=== PATIENT | female | born 1960 | race Caucasian/White ===

== ENCOUNTER 2018-04-23 11:26 | Emergency (ER) | payer OTHER ==
[2018-04-23] MEDS ORDERED: ACETAMINOPHEN 325 MG TABLET PO STA (11:56)
[2018-04-23] MEDS ORDERED: SODIUM CHLORIDE 0.9% 1,000 ML IV ONE (11:56)
--- NOTE | 2018-04-23 11:58 | ED Physician Documentation ---
PD HPI NVD - Stated complaint Stated Complaint: N/V CHILLS FEVER - Chief complaint Chief Complaint: Abd Pain - History obtained from History obtained from: Patient, Family - History of Present Illness Timing - onset: Today Timing - duration: Hours Timing - details: Abrupt onset, Still present Associated symptoms: Fever, Dizzy, Near syncope / syncope, Loss of appetite Improved by: Laying still Similar symptoms before: Has not had sx before Recently seen: Not recently seen - Additonal information Additional information: 58-year-old female was well when she went to bed last night and when she woke this morning. She did not have breakfast which is usual for her. 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 She has low-grade fever. She denies any more cough than her usual morning cough which she coughed up a small amount of phlegm. She denies any swelling or areas of pain. Review of Systems Constitutional: reports: Fever, Chills, Myalgias, Fatigue, Sweats Eyes: denies: Decreased vision Ears: denies: Ear pain Nose: denies: Rhinorrhea / runny nose, Congestion Throat: denies: Sore throat Cardiac: denies: Chest pain / pressure, Palpitations Respiratory: reports: Cough. denies: Dyspnea GI: reports: Nausea, Vomiting. denies: Abdominal Pain : denies: Dysuria, Frequency Skin: denies: Rash Musculoskeletal: denies: Neck pain, Back pain, Extremity pain Neurologic: reports: Generalized weakness. 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, Tubal ligation - Present Medications Home Medications: Ambulatory Orders Medication Instructions Recorded Confirmed Levofloxacin [Levaquin] 500 mg PO DAILY #10 tablet 04/23/18 - Allergies Allergies/Adverse Reactions: Allergies Allergy/AdvReac Type Severity Reaction Status Date / Time adhesive Allergy Hives Verified 04/23/18 11:32 - Social History Does the pt smoke?: No Smoking Status: Never smoker Does the pt drink ETOH?: No Does the pt have substance abuse?: No - Immunizations Immunizations are current?: Yes - POLST Patient has POLST: No PD ED PE NORMAL - Vitals Vital signs reviewed: Yes (tachy and hypertensive ) - General General: Alert and oriented X 3, No acute distress, Well developed/nourished - HEENT HEENT: Atraumatic, PERRL, EOMI, Ears normal - Neck Neck: Supple, no meningeal sign, No bony TTP - Cardiac Cardiac: No murmur, Other (tachy to 110) - Respiratory Respiratory: No respiratory distress, Clear bilaterally - Abdomen Abdomen: Soft, Non tender - Back Back: No CVA TTP, No spinal TTP - Derm Derm: Normal color, Warm and dry, No rash - Extremities Extremities: No deformity, No edema - Neuro Neuro: Alert and oriented X 3, public health registrar 2-12 intact, No motor deficit, No sensory deficit, Normal speech Eye Opening: Spontaneous Motor: Obeys Commands Verbal: Oriented GCS Score: 15 - Psych Psych: Normal mood, Normal affect Results - Vitals Vitals: Vital Signs - 24 hr 04/23/18 04/23/18 04/23/18 11:30 15:06 15:23 Temperature 37.0 C 38.1 C H Heart Rate 107 H 93 Respiratory 16 18 Rate Blood Pressure 136/75 H 103/63 O2 Saturation 97 94 97 Oxygen O2 Source Room air - Labs Labs: Laboratory Tests 04/23/18 04/23/18 04/23/18 12:10 12:10 12:15 WBC 12.7 H RBC 4.74 Hgb 13.8 Hct 40.6 MCV 85.6 MCH 29.1 MCHC 34.0 RDW 13.6 Plt Count 197 MPV 9.7 Neut # (Auto) 12.2 H Lymph # (Auto) 0.3 L [place] # (Auto) 0.2 Eos # (Auto) 0.0 Baso # (Auto) 0.1 Absolute Nucleated RBC 0.01 Total Counted CHILD WELFARE SPECIALIST Band Neuts % (Manual) CHILD WELFARE SPECIALIST Abnorm Lymph % (Manual) CHILD WELFARE SPECIALIST Nucleated RBC % 0.1 Neutrophils # (Manual) CHILD WELFARE SPECIALIST Lymphocytes # (Manual) CHILD WELFARE SPECIALIST Monocytes # (Manual) CHILD WELFARE SPECIALIST Eosinophils # (Manual) CHILD WELFARE SPECIALIST Basophils # (Manual) CHILD WELFARE SPECIALIST Platelet Morphology A Sodium 138 Potassium 3.1 L Chloride 103 Carbon Dioxide 26 Anion Gap 9.0 BUN 23 H Creatinine 0.6 Estimated GFR (MDRD) 102 Glucose 118 H Lactic Acid 2.0 Calcium 9.0 Total Bilirubin 1.1 H AST 24 ALT 23 Alkaline Phosphatase 94 Total Protein 7.2 Albumin 4.2 Globulin 3.0 Albumin/Globulin Ratio 1.4 Lipase 29 Urine Color Urine Clarity Urine pH Ur Specific [place] Urine Protein Urine Glucose (UA) Urine Ketones Urine Occult Blood Urine Nitrite Urine Bilirubin Urine Urobilinogen Ur Leukocyte Esterase Urine RBC Urine WBC Ur Squamous Epith Cells Urine Bacteria Urine Mucus Ur Microscopic Review Urine Culture Comments 04/23/18 12:21 WBC RBC Hgb Hct MCV MCH MCHC RDW Plt Count MPV Neut # (Auto) Lymph # (Auto) [place] # (Auto) Eos # (Auto) Baso # (Auto) Absolute Nucleated RBC Total Counted Band Neuts % (Manual) Abnorm Lymph % (Manual) Nucleated RBC % Neutrophils # (Manual) Lymphocytes # (Manual) Monocytes # (Manual) Eosinophils # (Manual) Basophils # (Manual) Platelet Morphology Sodium Potassium Chloride Carbon Dioxide Anion Gap BUN Creatinine Estimated GFR (MDRD) Glucose Lactic Acid Calcium Total Bilirubin AST ALT Alkaline Phosphatase Total Protein Albumin Globulin Albumin/Globulin Ratio Lipase Urine Color YELLOW Urine Clarity CLEAR Urine pH 8.0 H Ur Specific [place] 1.020 Urine Protein NEGATIVE Urine Glucose (UA) NEGATIVE Urine Ketones NEGATIVE Urine Occult Blood TRACE-INTA Urine Nitrite POSITIVE H Urine Bilirubin NEGATIVE Urine Urobilinogen 0.2 (NORMAL) Ur Leukocyte Esterase SMALL H Urine RBC 0-5 Urine WBC >25 H Ur Squamous Epith Cells RARE Squamous Urine Bacteria Moderate H Urine Mucus Few Strands Ur Microscopic Review INDICATED Urine Culture Comments INDICATED - Rads (name of study) 2 veiw chest Radiology: Prelim report reviewed (Impression: Mild nodular right lung base opacities could represent bronchopneumonia. Probable scar or atelectasis in the lingula), EMP read indepedently, See rad report Procedures - IVC sono (time) 1150 Bedside IVC sono: IVC measures (cm) (1.14), IVC collapsed c insp (cm) (complete), Dehydration (est 1liter deficit) PD MEDICAL DECISION MAKING - ED course Complexity details: reviewed old records, reviewed results, re-evaluated patient, considered differential, d/w patient, d/w family ED course: 58 y/o female with acute febrile illness has evidence of infection on plain film of the chest was well as exam of the urine under the microscope. She is treated in the ED with IV saline and rocephin and is given potassium for a K+ of 3.1. Departure - Departure Disposition: 01 Home, Self Care Clinical Impression: Urinary tract infection Qualifiers: Urinary tract infection type: acute cystitis Hematuria presence: without hematuria Qualified Code(s): N30.00 - Acute cystitis without hematuria Pneumonia Qualifiers: Pneumonia type: due to unspecified organism Laterality: right Lung location: lower lobe of lung Qualified Code(s): J18.1 - Lobar pneumonia, unspecified organism Condition: Stable Instructions: ED UTI Cystitis Female, ED Pneumonia Adult Follow-Up: Catina Goncalves PA [Primary Care Provider] - Prescriptions: Levofloxacin [Levaquin] 500 mg PO DAILY #10 tablet
[2018-04-23 12:29] LABS: BASOPHILS # (AUTO) 0.1 10^3/uL (0.0-0.1); BASOPHILS % (AUTO) 0.5 %; EOSINOPHILS % (AUTO) 0.3 %; HGB - HEMOGLOBIN 13.8 g/dL (12.0-16.0); LYMPHOCYTES # (AUTO) 0.3 10^3/uL (1.5-3.5); MEAN CORPUSCULAR HEMOGLOBIN 29.1 pg (27.0-31.0); MEAN CORPUSCULAR VOLUME 85.6 fL (81.0-99.0); MEAN PLATELET VOLUME 9.7 fL (7.9-10.8); MONOCYTES # (AUTO) 0.2 10^3/uL (0.0-1.0); MONOCYTES % (AUTO) 1.3 %; NEUTROPHILS # (AUTO) 12.2 10^3/uL (1.5-6.6); NEUTROPHILS % (AUTO) 95.9 %; PLT - PLATELET COUNT 197 10^3/uL (130-450); RED BLOOD COUNT 4.74 10^6/uL (4.20-5.40); RED CELL DISTRIBUTION WIDTH 13.6 % (12.0-15.0); WHITE BLOOD COUNT 12.7 x10^3/uL (4.8-10.8)
[2018-04-23 12:32] LABS: BILIRUBIN,URINE NEGATIVE (NEGATIVE); GLUCOSE, URINE (UA) NEGATIVE (NEGATIVE); KETONES,URINE (UA) NEGATIVE (NEGATIVE); LEUKOCYTE ESTERASE, URINE SMALL (NEGATIVE); NITRITE,URINE POSITIVE (NEGATIVE); OCCULT BLOOD,URINE TRACE-INTA (NEGATIVE); PROTEIN,URINE NEGATIVE (NEGATIVE); UROBILINOGEN,URINE 0.2 (NORMAL) E.U./dL (NORMAL)
[2018-04-23] MEDS ORDERED: cefTRIAXone 1 GM in SODIUM CHLORIDE 0.9% MINIBAG 100 ML IV STA (12:33)
[2018-04-23 12:39] LABS: ALBUMIN 4.2 g/dL (3.2-5.5); ALBUMIN/GLOBULIN RATIO 1.4 (1.0-2.2); BILIRUBIN,TOTAL 1.1 mg/dL (0.2-1.0); CREATININE 0.6 mg/dL (0.4-1.0); TOTAL PROTEIN 7.2 g/dL (6.7-8.2)
[2018-04-23] MEDS ORDERED: POTASSIUM BICARB 25 MEQ TABLET PO STA (12:40)
[2018-04-23 13:15] LABS: PLATELET MORPHOLOGY A (NORMAL)
[2018-04-23 13:42] LABS: CLARITY,URINE CLEAR (CLEAR)
[2018-04-23 13:43] LABS: BACTERIA,URINE Moderate /HPF (None Seen); RBC,URINE 0-5 /HPF (0-5); SQUAMOUS EPITHELIAL CELL,UR RARE Squamous (<= Few)
[2018-04-23 13:44] LABS: MUCUS,URINE Few Strands
--- NOTE | 2018-04-23 14:11 | XRAY Report ---
Reason: cough fever chills Procedure Date: 04/23/2018 Accession Number: [id number] / [id number] Procedure: XR - Chest 2 View X-Ray CPT Code: 79876 FULL RESULT: EXAM: CHEST RADIOGRAPHY EXAM DATE: 04/23/2018 01:16 PM. CLINICAL HISTORY: Cough fever chills. COMPARISON: None. TECHNIQUE: 2 views. FINDINGS: Lungs/Pleura: Mild nodular opacities in the right lung base, likely in the right lower lobe. Probable streaky atelectasis or scar in the lingula. No pleural effusion. No pneumothorax. Borderline hyperinflation. Mediastinum: Heart and mediastinal contours are normal. Other: None. IMPRESSION: Mild nodular right lung base opacities could represent bronchopneumonia. Probable scar or atelectasis in the lingula. RADIA
[2018-04-23 15:08] VITALS: BP 103/63
== END 2018-04-23 16:01 | disposition home or self-care (01) ==
LOC: ED 11:26
DX: N30.00 Acute cystitis without hematuria (principal); J18.1 Lobar pneumonia, unspecified organism; E86.0 Dehydration; I10 Essential (primary) hypertension; E78.00 Pure hypercholesterolemia, unspecified
CPT/HCPCS: 36415; 71046; 80053; 81001; 81003; 83605; 83690; 85025; 87040; 87077; 87086; 87181; 99283

== ENCOUNTER 2018-04-24 00:11 | Inpatient (IN) | payer OTHER ==
--- NOTE | 2018-04-24 00:17 | ED Physician Documentation ---
ED Addendum - Addendum Addendum: The patient was seen earlier in the day and we are getting a preliminary blood culture results off of both sets of blood cultures with gram-negative rods (she was diagnosed with UTI). The patient was called to return to the ER for hospitalization due to bacteremia.8 00:16
[2018-04-24] MEDS ORDERED: SODIUM CHLORIDE 0.9% 1,000 ML IV ONE (00:40)
[2018-04-24] MEDS ORDERED: ZOLPIDEM 5 MG TABLET PO PRN (00:41)
[2018-04-24] MEDS ORDERED: cefTRIAXone 1 GM VIAL IVP STA (00:41)
[2018-04-24] MEDS ORDERED: oxyCODONE 5 MG TABLET PO PRN (00:41)
[2018-04-24] MEDS ORDERED: PROCHLORPERAZINE 10 MG/2 ML VIAL IVP PRN (00:41)
[2018-04-24] MEDS ORDERED: PROMETHAZINE 25 MG/1 ML VIAL IM PRN (00:41)
--- NOTE | 2018-04-24 00:48 | HISTORY & PHYSICAL EXAMINATION ---
Chief Complaint - Chief Complaint Chief Complaint: Nausea, vomiting, fever and chills History of Present Illness - Admitted From Admitted From:: Emergency Department - History Obtained From Records Reviewed: Yes History obtained from: Patient Exam Limitations: None - History of Present Illness HPI Comment/Other: Patient is a 58-year-old female with a past medical history significant for hypertension, hyperlipidemia, obstructive sleep apnea on CPAP, history of kidney stones and herniated disc in her spine who presented to the emergency department with a chief complaint of nausea, vomiting, chills and fever. The patient states that she was in her normal state of health until late last week when she began to develop urinary symptoms. She states that she was having increased urinary frequency, urinary urgency and noticed that she was having cloudy urine. The patient however denies any dysuria or abdominal or flank pain. She states that she did notice that she was having some palpitations off and on without any shortness of breath. She did not see a doctor or take any antibiotics. She states that around 8 AM this morning she became very nauseated. She states that she then started having dry heaves which continued to get worse and developed fever and chills. She states that her nausea was uncontrolled and she just continued to feel worse until she ended up calling her daughter to bring her into the emergency department. The patient also states that she has had a poor appetite throughout the day today and has not eaten anything today. Patient denies any headaches, blurred vision, runny nose, sore throat, nasal congestion, difficulty swallowing, chest pain, shortness of air, orthopnea, PND, increased lower extremity swelling, abdominal pain, diarrhea, constipation, joint swelling, muscle aches, back pain, neck stiffness, recent unintentional weight loss, hair loss, night sweats, polyuria, polydipsia, skin changes, insomnia or any focal neurologic deficits. On presentation to the emergency department this morning the patient was febrile with a temperature of 38.1, tachycardic with a heart rate of 107 and borderline hypotensive with a blood pressure of 103/63. The patient's lab work revealed a white blood cell count that was elevated at 12.7 and a mild hypokalemia. Patient's lactic acid was 2.0. The patient's urine analysis was positive with nitrite, small leukocyte esterase, greater than 25 WBCs and moderate bacteria. The patient also underwent a chest x-ray which revealed a mild nodular right lung base opacity which could represent broncho-pneumonia. The patient was diagnosed with a urinary tract infection and community acquired pneumonia. She was given a dose of IV ceftriaxone and discharged home with oral Levaquin. Later this evening the emergency room physician received the results from the patient's blood cultures from earlier in the day and they were growing gram- negative bacilli. The emergency room physician called the patient to come back to the emergency department so that she could be admitted for bacteremia. The patient returned and had normal vital signs and seemed to be feeling better but was admitted to the medical [facility] for further IV antibiotics and repeat blood cultures. 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 The live on a farm and have sheep and other animals. The patient is originally from [place] and moved to [facility] when her was deployed here in the [employer]. She has been living here for more than 20 years. 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 She denies any tobacco use, she rarely drinks alcohol and denies any illicit drug use. - POLST Patient has POLST: No POLST Status: Full Code Meds/Allgy - Home Medications Home Medications: Ambulatory Orders Medication Instructions Recorded Confirmed Levofloxacin [Levaquin] 500 mg PO DAILY #10 tablet 04/23/18 - Allergies Allergies/Adverse Reactions: Allergies Allergy/AdvReac Type Severity Reaction Status Date / Time adhesive Allergy Hives Verified 04/24/18 00:21 Review of Systems - Other Findings Other Findings: A comprehensive review of systems was performed the pertinent positives and negatives are stated above in the HPI and the remainder of the review of systems is negative. Prior Level of Functionality: Patient is completely independent with all her activities of daily living. Exam - Vital Signs Reviewed Vital Signs: Yes Vital Signs: Vital Signs x48h Temp Pulse Resp BP Pulse Ox 04/24/18 00:18 36.6 C 84 18 135/76 H 96 - Physical Exam General Appearance: positive: No acute distress, Alert Eyes Bilateral: positive: Normal inspection, PERRL, EOMI, No lid inflammation, Conjunctivae nml, No scleral icterus ENT: positive: ENT inspection nml, Pharynx nml, Dry mucous membranes. negative: Purulent nasal drainage, Pharyngeal erythema, Oral lesions Neck: positive: Nml inspection, Thyroid nml, No JVD, Trachea midline. negative: Thyromegaly, Lymphadenopathy (R), Lymphadenopathy (L), Carotid bruit, Tracheal deviation Respiratory: positive: Chest non-tender, No respiratory distress, Breath sounds nml. negative: Wheezes, Rales, Rhonchi Cardiovascular: positive: Regular rate & rhythm, No murmur, No gallop Peripheral Pulses: positive: 2+ Abdomen: positive: Non-tender, No organomegaly, Nml bowel sounds, No distention. negative: Guarding, Rebound, Hepatomegaly Back: positive: Nml inspection. negative: CVA tenderness (R), CVA tenderness (L) Skin: positive: Color nml, No rash, Warm, Dry. negative: Cyanosis, Diaphoresis, Pallor Extremities: positive: Non-tender, Full ROM, Nml appearance, No pedal edema Neurologic/Psychiatric: positive: Oriented x3, CN's nml (2-12), Motor nml, Sensation nml, Mood/affect nml Conclusion/Plan - Problem List (1) Gram-negative bacteremia Conclusion/Plan: The patient presented to the emergency department earlier today with complaint of nausea, dry heaves, chills and fever. The symptoms were getting worse throughout the morning to the point where patient could no longer stay at home. The patient also admitted to increased urinary frequency, urgency and cloudy urine since last week. On presentation the patient was febrile, tachycardic and had a leukocytosis. Patient's urinalysis was grossly positive for a urinary tract infection. Patient was also found to have infiltrate on chest x-ray concerning for pneumonia. Patient was treated with IV antibiotics and sent home but was called back when her blood cultures came back negative for gram- negative bacilli. Plan: Patient is being admitted for gram-negative bacilli bacteremia IV ceftriaxone and azithromycin Repeat blood cultures 24 hours after initial blood culture Await susceptibilities IV fluids The patient will need 14 days of antibiotic treatment (2) Urinary tract infection Conclusion/Plan: The patient presented with urinary urgency, urinary frequency and cloudy urine for over a week. She was beginning to have worsening symptoms of fevers, chills and nausea and vomiting. The patient had a positive UA concerning for urinary tract infection. Patient was treated with IV antibiotics and sent home but returns with positive blood cultures for gram-negative bacilli. Plan: IV ceftriaxone for treatment of UTI with bacteremia Follow-up urine and blood cultures IV fluids If patient remains afebrile for greater than 24 hours and appears to be improving she may be able to be switched to oral antibiotics depending on susceptibilities Patient will need 14 days of treatment for treatment of bacteremia. Qualifiers: Urinary tract infection type: acute pyelonephritis Qualified Code(s): N10 - Acute pyelonephritis (3) CAP (community acquired pneumonia) Conclusion/Plan: The patient presented with fever, tachycardia and elevated white blood cell count. The patient was found to have a urinary tract infection. The patient also underwent a chest x-ray which did show a right base pneumonia. The patient was initially treated with IV antibiotics in the emergency department and sent home with p.yoshi Urrutia. However the patient's blood cultures are growing gram- negative bacilli and she was called back to the emergency department and will be admitted for bacteremia. Plan: IV ceftriaxone azithromycin Follow-up blood cultures IV fluids Supplemental oxygen as needed Qualifiers: Laterality: right (4) Hypokalemia Conclusion/Plan: The patient had hypokalemia on presentation with a potassium of 3.1. This is likely secondary to her nausea and vomiting earlier this morning. The patient will be given potassium replacement with her IV fluid. We will continue to monitor the patient's potassium daily. (5) Hypertension Conclusion/Plan: Patient is a history of hypertension and is on metoprolol at home. The patient takes 100 mg of metoprolol in the morning and 50 mill grams at night. We will continue the patient on her home metoprolol dose and continue to monitor her blood pressure and titrate medication as needed. Qualifiers: Hypertension type: essential hypertension Qualified Code(s): I10 - Essential (primary) hypertension (6) Hyperlipidemia Conclusion/Plan: Patient has a history of hyperlipidemia and is on a statin at home. The patient will be continued on her statin while she is hospitalized. Qualifiers: Hyperlipidemia type: unspecified Qualified Code(s): E78.5 - Hyperlipidemia, unspecified (7) WESLY on CPAP Conclusion/Plan: Patient has a history of obstructive sleep apnea on CPAP. She is not compliant with her CPAP at home. The patient will be allowed to bring in her home CPAP and use it if she desires. (8) Chronic back pain Conclusion/Plan: The patient has chronic back pain secondary to a herniated disc. The patient takes meloxicam daily at home. We will continue the patient on meloxicam while she is hospitalized here. Patient will also be able to get Tylenol and oxycodone if she needs it. Qualifiers: Back pain location: back pain in unspecified location - Lab Results Lab results reviewed: Yes Other Lab Results: WBC 12.7 Potassium 3.1 BUN 23 Glucose 118 Total bilirubin 1.1 Lactate 2.0 - Diagnostic Imaging Results Diagnostic Imaging Results: positive: Final report reviewed Diagnostic Imaging Results Comments: Chest x-ray Impression: Mild nodular right lung base opacities could represent bronchopneumonia. Probable scar or atelectasis in the lingula. Core Measures - Anticipated LOS I expect patient to be DC'd or transferred within 96 hours.: Yes - DVT/VTE - Prophylaxis VTE/DVT Prophylaxis med ordered at admit?: Yes
[2018-04-24] MEDS: NS W/20 MEQ KCL 1,000 ML IV SCH ×2 (03:38→17:17)
[2018-04-24] MEDS: oxyCODONE 5 MG TABLET PO PRN ×2 (03:46→16:08)
[2018-04-24] MEDS: ACETAMINOPHEN 325 MG TABLET PO PRN ×2 (03:46→16:08)
[2018-04-24] MEDS: AZITHROMYCIN INJ 500 MG in SODIUM CHLORIDE 0.9% 250 ML IV SCH (03:46)
[2018-04-24] MEDS: SODIUM CHLORIDE FLUSH 0.9% 10 ML SYRINGE IVP SCH ×3 (03:55→17:20)
[2018-04-24] MEDS: ONDANSETRON 4 MG/2 ML VIAL IVP PRN (03:58)
[2018-04-24 04:10] LABS: BASOPHILS # (AUTO) 0.1 10^3/uL (0.0-0.1); BASOPHILS % (AUTO) 0.7 %; EOSINOPHILS % (AUTO) 0.3 %; HGB - HEMOGLOBIN 12.3 g/dL (12.0-16.0); LYMPHOCYTES # (AUTO) 0.4 10^3/uL (1.5-3.5); LYMPHOCYTES % (AUTO) 4.9 %; MEAN CORPUSCULAR HEMOGLOBIN 29.8 pg (27.0-31.0); MEAN CORPUSCULAR HGB CONC 34.4 g/dL (32.0-36.0); MEAN CORPUSCULAR VOLUME 86.5 fL (81.0-99.0); MEAN PLATELET VOLUME 9.2 fL (7.9-10.8); MONOCYTES # (AUTO) 0.4 10^3/uL (0.0-1.0); MONOCYTES % (AUTO) 4.8 %; NEUTROPHILS # (AUTO) 7.3 10^3/uL (1.5-6.6); NEUTROPHILS % (AUTO) 89.3 %; PLT - PLATELET COUNT 141 10^3/uL (130-450); RED BLOOD COUNT 4.13 10^6/uL (4.20-5.40); RED CELL DISTRIBUTION WIDTH 13.9 % (12.0-15.0); WHITE BLOOD COUNT 8.2 x10^3/uL (4.8-10.8)
[2018-04-24 04:13] LABS: ALBUMIN 3.4 g/dL (3.2-5.5); ALBUMIN/GLOBULIN RATIO 1.3 (1.0-2.2); BILIRUBIN,TOTAL 0.7 mg/dL (0.2-1.0); CALCIUM 8.5 mg/dL (8.5-10.3); CREATININE 0.5 mg/dL (0.4-1.0); TOTAL PROTEIN 6.1 g/dL (6.7-8.2)
[2018-04-24] MEDS: SACCHAROMYCES BOULARDII 250 MG CAPSULE PO SCH ×2 (08:55→17:20)
[2018-04-24] MEDS: MELOXICAM 7.5 MG TABLET PO SCH (08:56)
[2018-04-24] MEDS: FAMOTIDINE 20 MG TABLET PO SCH ×2 (08:56→21:34)
[2018-04-24] MEDS: METOPROLOL TARTRATE 50 MG TABLET PO SCH ×2 (08:56→21:34)
[2018-04-24] MEDS: POLYETHYLENE GLYCOL 3350 17 GM PACKET PO SCH (08:57)
[2018-04-24] MEDS ORDERED: METOPROLOL TARTRATE 50 MG TABLET PO SCH ×2 (09:00→21:00)
[2018-04-24] MEDS: ENOXAPARIN 40 MG/0.4 ML SYRINGE SUBQ SCH (09:09)
[2018-04-24] MEDS: ATORVASTATIN 40 MG TABLET PO SCH (21:35)
[2018-04-25] MEDS: SODIUM CHLORIDE FLUSH 0.9% 10 ML SYRINGE IVP SCH ×4 (00:18→17:02)
[2018-04-25] MEDS: cefTRIAXone 2 GM in SODIUM CHLORIDE 0.9% MINIBAG 100 ML IV SCH (00:30)
[2018-04-25] MEDS: ONDANSETRON 4 MG/2 ML VIAL IVP PRN (01:28)
[2018-04-25] MEDS: AZITHROMYCIN INJ 500 MG in SODIUM CHLORIDE 0.9% 250 ML IV SCH (01:34)
[2018-04-25] MEDS: SODIUM CHLORIDE FLUSH 0.9% 10 ML SYRINGE IVP PRN (01:43)
[2018-04-25] MEDS: ACETAMINOPHEN 325 MG TABLET PO PRN ×2 (01:50→15:39)
[2018-04-25] MEDS: oxyCODONE 5 MG TABLET PO PRN (01:53)
[2018-04-25 05:49] LABS: BASOPHILS # (AUTO) 0.1 10^3/uL (0.0-0.1); BASOPHILS % (AUTO) 1.4 %; EOSINOPHILS # (AUTO) 0.1 10^3/uL (0.0-0.7); EOSINOPHILS % (AUTO) 1.3 %; HGB - HEMOGLOBIN 12.1 g/dL (12.0-16.0); LYMPHOCYTES # (AUTO) 0.6 10^3/uL (1.5-3.5); LYMPHOCYTES % (AUTO) 8.6 %; MEAN CORPUSCULAR HEMOGLOBIN 29.6 pg (27.0-31.0); MEAN CORPUSCULAR HGB CONC 33.8 g/dL (32.0-36.0); MEAN CORPUSCULAR VOLUME 87.7 fL (81.0-99.0); MEAN PLATELET VOLUME 9.7 fL (7.9-10.8); MONOCYTES # (AUTO) 0.5 10^3/uL (0.0-1.0); MONOCYTES % (AUTO) 7.2 %; NEUTROPHILS # (AUTO) 5.9 10^3/uL (1.5-6.6); NEUTROPHILS % (AUTO) 81.5 %; PLT - PLATELET COUNT 153 10^3/uL (130-450); RED BLOOD COUNT 4.09 10^6/uL (4.20-5.40); RED CELL DISTRIBUTION WIDTH 13.6 % (12.0-15.0); WHITE BLOOD COUNT 7.2 x10^3/uL (4.8-10.8)
[2018-04-25 05:56] LABS: ALBUMIN 3.3 g/dL (3.2-5.5); ALBUMIN/GLOBULIN RATIO 1.2 (1.0-2.2); BILIRUBIN,TOTAL 0.3 mg/dL (0.2-1.0); CALCIUM 8.8 mg/dL (8.5-10.3); CREATININE 0.5 mg/dL (0.4-1.0)
[2018-04-25] MEDS: SACCHAROMYCES BOULARDII 250 MG CAPSULE PO SCH ×2 (08:33→17:02)
[2018-04-25] MEDS: METOPROLOL TARTRATE 50 MG TABLET PO SCH ×2 (08:34→21:27)
[2018-04-25] MEDS: MELOXICAM 7.5 MG TABLET PO SCH (08:34)
[2018-04-25] MEDS: FAMOTIDINE 20 MG TABLET PO SCH ×2 (08:34→21:28)
[2018-04-25] MEDS: ENOXAPARIN 40 MG/0.4 ML SYRINGE SUBQ SCH (08:36)
[2018-04-25] MEDS: POLYETHYLENE GLYCOL 3350 17 GM PACKET PO SCH (08:36)
--- NOTE | 2018-04-25 17:36 | PROVIDER PROGRESS NOTE ---
Assessment/Plan - Problem List (1) Bacteremia due to Klebsiella pneumoniae Assessment/Plan: The ID from blood and urine cultures show the same Klebsiella organism with same susceptibilities. Will plan 48 hours of iv antibiotic then transition to po antibiotic for a 14 day total course. (2) Urinary tract infection Qualifiers: Urinary tract infection type: acute pyelonephritis Qualified Code(s): N10 - Acute pyelonephritis Assessment/Plan: Continue iv Ceftriaxone for 48 hours, then transition to po antibiotic. She will need to get a dose of po antibiotic here, to determine if sjhe needs to be sent home with antiemetics. (3) N&V (nausea and vomiting) Assessment/Plan: She is nauseated to eevery iv antibiotic dose and needs antiemetic. She will need to get a dose of po antibiotic here, to determine if she needs to be sent home with antiemetics. (4) Hypertension Qualifiers: Hypertension type: essential hypertension Qualified Code(s): I10 - Essential (primary) hypertension Assessment/Plan: Continue her home BP meds while here. (5) WESLY on CPAP Assessment/Plan: Pt was ordered to use her CPAP device while here. (6) CAP (community acquired pneumonia) Qualifiers: Laterality: right Assessment/Plan: The ER CXR from 04/23/18 was suspicious for CAP. The Zithromax and Ceftriaxine have started to treat that as well. She has made no sputum to obtain a culture. Will recheck a CXR in am. - Current Meds Current Meds: Current Medications Generic Name Dose Route Start Last Admin Trade Name Freq PRN Reason Stop Dose Admin Acetaminophen 650 mg 04/24/18 00:41 04/25/18 15:39 Tylenol PO 650 mg Q4HR PRN Administration Pain 1 to 4 Atorvastatin Calcium 20 mg 04/24/18 21:00 04/24/18 21:35 Lipitor PO 20 mg QPM SAW Administration Enoxaparin Sodium 40 mg 04/24/18 09:00 04/25/18 08:36 Lovenox SUBQ 40 mg DAILY SAW Administration Famotidine 20 mg 04/24/18 09:00 04/25/18 08:34 Pepcid PO 20 mg BID SAW Administration Ceftriaxone Sodium 2 gm/ 100 mls @ 200 mls/hr 04/25/18 01:00 04/25/18 01:10 Sodium Chloride IV Infused Q24H SAW Infusion Meloxicam 7.5 mg 04/24/18 09:00 04/25/18 08:34 Mobic PO 7.5 mg DAILY SAW Administration Metoprolol Tartrate 50 mg 04/24/18 21:00 04/24/18 21:34 Lopressor PO 50 mg 2100 SAW Administration Metoprolol Tartrate 100 mg 04/24/18 09:00 04/25/18 08:34 Lopressor PO 100 mg DAILY SAW Administration Ondansetron HCl 4 mg 04/24/18 00:41 04/25/18 01:28 Zofran Inj IVP 4 mg Q6HR PRN Administration Nausea / Vomiting Oxycodone HCl 5 mg 04/24/18 00:41 04/25/18 01:53 Roxicodone PO 5 mg Q4HR PRN Administration Pain 5 to 7 Polyethylene Glycol 17 gm 04/24/18 09:00 04/25/18 08:36 Miralax PO 17 gm DAILY SAW Administration Prochlorperazine Edisylate 10 mg 04/24/18 00:41 04/25/18 01:43 Compazine Inj IVP 10 mg Q6HR PRN Administration Nausea / Vomiting Saccharomyces Boulardii 250 mg 04/24/18 08:00 04/25/18 17:02 Florastor PO 250 mg BIDWM SAW Administration Sodium Chloride 10 ml 04/24/18 00:41 04/25/18 01:43 Normal Saline Flush 0.9% IVP 10 ml PRN PRN Administration NEEDED PER PROVIDER ORDERS Sodium Chloride 10 ml 04/24/18 01:00 04/25/18 17:02 Normal Saline Flush 0.9% IVP 10 ml 0100,0900,1700 SAW Administration - Lab Result Fish Bone Diagrams: 04/25/18 05:00 04/25/18 05:00 Subjective - Subjective Patient Reports: Feeling Better, Resting Comfortably, No Complaints Objective Vital Signs: Vital Signs - 24 hr 04/24/18 04/25/18 04/25/18 21:34 00:16 07:39 Temperature 37.1 C 36.9 C Heart Rate [ 72 73 Radial] Respiratory 14 17 Rate Blood Pressure 114/66 Blood Pressure 117/70 114/66 [Right Brachial artery] O2 Saturation 97 95 04/25/18 04/25/18 08:34 15:44 Temperature 37.5 C Heart Rate [ 75 Radial] Respiratory 18 Rate Blood Pressure 114/66 Blood Pressure 130/71 [Right Brachial artery] O2 Saturation 96 Oxygen O2 Source Room air I&O (Last 24 Hrs): Intake and Output Totals x24h 04/23/18 04/24/18 04/25/18 23:59 23:59 23:59 Intake Total 2713.000 1346 Output Total 0 Balance 2713.000 1346 General: Alert, Oriented x3 HEENT: Mucous membr. moist/pink Neck: Supple, No JVD Neuro: Non Focal Cardiovascular: Regular rate, No murmurs Respiratory: No respiratory distress, Breath sounds nml Abdomen: Normal bowel sounds, Soft, No tenderness Extremities: No edema - Results Results: Laboratory Results WBC 7.2 x10^3/uL (4.8-10.8) 04/25/18 05:00 RBC 4.09 10^6/uL (4.20-5.40) L 04/25/18 05:00 Hgb 12.1 g/dL (12.0-16.0) 04/25/18 05:00 Hct 35.9 % (37.0-47.0) L 04/25/18 05:00 MCV 87.7 fL (81.0-99.0) 04/25/18 05:00 MCH 29.6 pg (27.0-31.0) 04/25/18 05:00 MCHC 33.8 g/dL (32.0-36.0) 04/25/18 05:00 RDW 13.6 % (12.0-15.0) 04/25/18 05:00 Plt Count 153 10^3/uL (130-450) 04/25/18 05:00 MPV 9.7 fL (7.9-10.8) 04/25/18 05:00 Neut # (Auto) 5.9 10^3/uL (1.5-6.6) 04/25/18 05:00 Lymph # (Auto) 0.6 10^3/uL (1.5-3.5) L 04/25/18 05:00 [place] # (Auto) 0.5 10^3/uL (0.0-1.0) 04/25/18 05:00 Eos # (Auto) 0.1 10^3/uL (0.0-0.7) 04/25/18 05:00 Baso # (Auto) 0.1 10^3/uL (0.0-0.1) 04/25/18 05:00 Absolute Nucleated RBC 0.00 x10^3/uL 04/25/18 05:00 Nucleated RBC % 0.1 /100WBC 04/25/18 05:00 Sodium 139 mmol/L (135-145) 04/25/18 05:00 Potassium 3.8 mmol/L (3.5-5.0) 04/25/18 05:00 Chloride 109 mmol/L (101-111) 04/25/18 05:00 Carbon Dioxide 23 mmol/L (21-32) 04/25/18 05:00 Anion Gap 7.0 (6-13) 04/25/18 05:00 BUN 14 mg/dL (6-20) 04/25/18 05:00 Creatinine 0.5 mg/dL (0.4-1.0) 04/25/18 05:00 Estimated GFR (MDRD) 126 (>89) 04/25/18 05:00 Glucose 127 mg/dL (70-100) H 04/25/18 05:00 Lactic Acid 0.8 mmol/L (0.5-2.2) 04/24/18 03:55 Calcium 8.8 mg/dL (8.5-10.3) 04/25/18 05:00 Total Bilirubin 0.3 mg/dL (0.2-1.0) 04/25/18 05:00 AST 23 IU/L (10-42) 04/25/18 05:00 ALT 27 IU/L (10-60) 04/25/18 05:00 Alkaline Phosphatase 81 IU/L (42-121) 04/25/18 05:00 Total Protein 6.0 g/dL (6.7-8.2) L 04/25/18 05:00 Albumin 3.3 g/dL (3.2-5.5) 04/25/18 05:00 Globulin 2.7 g/dL (2.1-4.2) 04/25/18 05:00 Albumin/Globulin Ratio 1.2 (1.0-2.2) 04/25/18 05:00
[2018-04-25] MEDS: ATORVASTATIN 40 MG TABLET PO SCH (21:28)
[2018-04-26] MEDS: ONDANSETRON 4 MG/2 ML VIAL IVP PRN (00:15)
[2018-04-26] MEDS: SODIUM CHLORIDE FLUSH 0.9% 10 ML SYRINGE IVP SCH ×4 (00:15→23:38)
[2018-04-26] MEDS: SODIUM CHLORIDE FLUSH 0.9% 10 ML SYRINGE IVP PRN (01:00)
[2018-04-26] MEDS: cefTRIAXone 2 GM in SODIUM CHLORIDE 0.9% MINIBAG 100 ML IV SCH (01:00)
[2018-04-26 05:32] LABS: BASOPHILS % (AUTO) 0.3 %; EOSINOPHILS # (AUTO) 0.2 10^3/uL (0.0-0.7); EOSINOPHILS % (AUTO) 4.5 %; LYMPHOCYTES # (AUTO) 0.9 10^3/uL (1.5-3.5); LYMPHOCYTES % (AUTO) 21.3 %; MEAN CORPUSCULAR HEMOGLOBIN 30.1 pg (27.0-31.0); MEAN CORPUSCULAR HGB CONC 34.9 g/dL (32.0-36.0); MEAN CORPUSCULAR VOLUME 86.1 fL (81.0-99.0); MEAN PLATELET VOLUME 9.3 fL (7.9-10.8); MONOCYTES # (AUTO) 0.4 10^3/uL (0.0-1.0); MONOCYTES % (AUTO) 9.7 %; NEUTROPHILS # (AUTO) 2.7 10^3/uL (1.5-6.6); NEUTROPHILS % (AUTO) 64.2 %; PLT - PLATELET COUNT 158 10^3/uL (130-450); RED CELL DISTRIBUTION WIDTH 13.6 % (12.0-15.0); WHITE BLOOD COUNT 4.2 x10^3/uL (4.8-10.8)
[2018-04-26 05:46] LABS: ALBUMIN 3.3 g/dL (3.2-5.5); ALBUMIN/GLOBULIN RATIO 1.1 (1.0-2.2); BILIRUBIN,TOTAL 0.5 mg/dL (0.2-1.0); CALCIUM 8.7 mg/dL (8.5-10.3); CREATININE 0.6 mg/dL (0.4-1.0); TOTAL PROTEIN 6.2 g/dL (6.7-8.2)
[2018-04-26] MEDS: SACCHAROMYCES BOULARDII 250 MG CAPSULE PO SCH ×2 (10:44→16:38)
[2018-04-26] MEDS: MELOXICAM 7.5 MG TABLET PO SCH (10:44)
[2018-04-26] MEDS: FAMOTIDINE 20 MG TABLET PO SCH ×2 (10:45→21:22)
[2018-04-26] MEDS: METOPROLOL TARTRATE 50 MG TABLET PO SCH ×2 (10:48→21:22)
[2018-04-26] MEDS: ENOXAPARIN 40 MG/0.4 ML SYRINGE SUBQ SCH (10:49)
--- NOTE | 2018-04-26 10:55 | XRAY Report ---
Reason: F/U pneumonia Procedure Date: 04/26/2018 Accession Number: [id number] / [id number] Procedure: XR - Chest 1 View X-Ray CPT Code: 07944 FULL RESULT: EXAM: CHEST RADIOGRAPHY EXAM DATE: 04/26/2018 07:52 AM. CLINICAL HISTORY: F/U pneumonia. COMPARISON: CHEST 2 VIEW 04/23/2018 12:59 PM. TECHNIQUE: 1 view. FINDINGS: Lungs/Pleura: Mild bibasilar hazy and reticular nodular opacities are similar to prior allowing for differences in technique. No new airspace opacity. No pneumothorax. Mediastinum: Within exam limitations, the cardiomediastinal contour is normal. Other: None. IMPRESSION: No significant change from prior. RADIA
[2018-04-26] MEDS: POLYETHYLENE GLYCOL 3350 17 GM PACKET PO SCH (11:45)
--- NOTE | 2018-04-26 16:28 | PROVIDER PROGRESS NOTE ---
Assessment/Plan - Problem List (1) Bacteremia due to Klebsiella pneumoniae Assessment/Plan: Will stop iv Ceftriaxone and start po Bactrim DS bid, per sensitivities from blood cultures. Will determine if she needs antiemetics with the Bactrim DS, to discharge her on antiemetics. (2) Urinary tract infection Qualifiers: Urinary tract infection type: acute pyelonephritis Qualified Code(s): N10 - Acute pyelonephritis Assessment/Plan: As in #1 (3) Hypertension Qualifiers: Hypertension type: essential hypertension Qualified Code(s): I10 - Essential (primary) hypertension Assessment/Plan: Stable (4) WESLY on CPAP Assessment/Plan: Stable, home CPAP ordered to use. (5) CAP (community acquired pneumonia) Qualifiers: Laterality: right Assessment/Plan: The CXR does continue to show bilateral opacities, consistent with an atypical pneumonia. The po Bactrim DS will cover potential CAP from atypical organisms. (6) Diarrhea due to drug Assessment/Plan: New diarrhea since on antibiotics. Will continue Florastor and add Imodium prn. (7) N&V (nausea and vomiting) Assessment/Plan: Resolved - Current Meds Current Meds: Current Medications Generic Name Dose Route Start Last Admin Trade Name Freq PRN Reason Stop Dose Admin Acetaminophen 650 mg 04/24/18 00:41 04/25/18 15:39 Tylenol PO 650 mg Q4HR PRN Administration Pain 1 to 4 Atorvastatin Calcium 20 mg 04/24/18 21:00 04/25/18 21:28 Lipitor PO 20 mg QPM SAW Administration Enoxaparin Sodium 40 mg 04/24/18 09:00 04/26/18 10:49 Lovenox SUBQ 40 mg DAILY SAW Administration Famotidine 20 mg 04/24/18 09:00 04/26/18 10:45 Pepcid PO 20 mg BID SAW Administration Ceftriaxone Sodium 2 gm/ 100 mls @ 200 mls/hr 04/25/18 01:00 04/26/18 01:35 Sodium Chloride IV Infused Q24H SAW Infusion Meloxicam 7.5 mg 04/24/18 09:00 04/26/18 10:44 Mobic PO 7.5 mg DAILY SAW Administration Metoprolol Tartrate 50 mg 04/24/18 21:00 04/25/18 21:27 Lopressor PO 50 mg 2100 SAW Administration Metoprolol Tartrate 100 mg 04/24/18 09:00 04/26/18 10:48 Lopressor PO 100 mg DAILY SAW Administration Ondansetron HCl 4 mg 04/24/18 00:41 04/26/18 00:15 Zofran Inj IVP 4 mg Q6HR PRN Administration Nausea / Vomiting Oxycodone HCl 5 mg 04/24/18 00:41 04/25/18 01:53 Roxicodone PO 5 mg Q4HR PRN Administration Pain 5 to 7 Polyethylene Glycol 17 gm 04/24/18 09:00 04/26/18 11:45 Miralax PO Not Given DAILY SAW Prochlorperazine Edisylate 10 mg 04/24/18 00:41 04/25/18 01:43 Compazine Inj IVP 10 mg Q6HR PRN Administration Nausea / Vomiting Saccharomyces Boulardii 250 mg 04/24/18 08:00 04/26/18 10:44 Florastor PO 250 mg BIDWM SAW Administration Sodium Chloride 10 ml 04/24/18 00:41 04/26/18 01:00 Normal Saline Flush 0.9% IVP 10 ml PRN PRN Administration NEEDED PER PROVIDER ORDERS Sodium Chloride 10 ml 04/24/18 01:00 04/26/18 10:45 Normal Saline Flush 0.9% IVP 10 ml 0100,0900,1700 SAW Administration Zolpidem Tartrate 5 mg 04/24/18 00:41 04/25/18 22:56 Ambien PO 5 mg QPM PRN Administration Insomnia - Lab Result Fish Bone Diagrams: 04/26/18 05:20 04/26/18 05:20 Subjective - Subjective Patient Reports: Feeling Better, Diarrhea Objective Vital Signs: Vital Signs - 24 hr 04/25/18 04/25/18 04/26/18 21:25 21:27 00:00 Temperature 36.6 C Heart Rate [ 66 64 Radial] Respiratory 16 Rate Blood Pressure 123/64 Blood Pressure 123/64 115/56 L [Right Brachial artery] O2 Saturation 96 95 04/26/18 04/26/18 04/26/18 07:30 10:48 15:52 Temperature 36.9 C 37.0 C Heart Rate [ 79 71 Radial] Respiratory 18 18 Rate Blood Pressure 110/60 Blood Pressure 129/83 H 130/72 [Right Brachial artery] O2 Saturation 97 97 Oxygen O2 Source Room air I&O (Last 24 Hrs): Intake and Output Totals x24h 04/24/18 04/25/18 04/26/18 23:59 23:59 23:59 Intake Total 2713.000 1346 1320 Output Total 0 Balance 2713.000 1346 1320 General: Alert, Oriented x3 HEENT: Mucous membr. moist/pink Neck: Supple, No JVD Neuro: Non Focal Cardiovascular: Regular rate Respiratory: No respiratory distress Abdomen: Soft, Other (Hyperactive BS) Extremities: No edema - Results Results: Laboratory Results WBC 4.2 x10^3/uL (4.8-10.8) L 04/26/18 05:20 RBC 4.00 10^6/uL (4.20-5.40) L 04/26/18 05:20 Hgb 12.0 g/dL (12.0-16.0) 04/26/18 05:20 Hct 34.4 % (37.0-47.0) L 04/26/18 05:20 MCV 86.1 fL (81.0-99.0) 04/26/18 05:20 MCH 30.1 pg (27.0-31.0) 04/26/18 05:20 MCHC 34.9 g/dL (32.0-36.0) 04/26/18 05:20 RDW 13.6 % (12.0-15.0) 04/26/18 05:20 Plt Count 158 10^3/uL (130-450) 04/26/18 05:20 MPV 9.3 fL (7.9-10.8) 04/26/18 05:20 Neut # (Auto) 2.7 10^3/uL (1.5-6.6) 04/26/18 05:20 Lymph # (Auto) 0.9 10^3/uL (1.5-3.5) L 04/26/18 05:20 [place] # (Auto) 0.4 10^3/uL (0.0-1.0) 04/26/18 05:20 Eos # (Auto) 0.2 10^3/uL (0.0-0.7) 04/26/18 05:20 Baso # (Auto) 0.0 10^3/uL (0.0-0.1) 04/26/18 05:20 Absolute Nucleated RBC 0.00 x10^3/uL 04/26/18 05:20 Nucleated RBC % 0.1 /100WBC 04/26/18 05:20 Sodium 140 mmol/L (135-145) 04/26/18 05:20 Potassium 3.5 mmol/L (3.5-5.0) 04/26/18 05:20 Chloride 107 mmol/L (101-111) 04/26/18 05:20 Carbon Dioxide 26 mmol/L (21-32) 04/26/18 05:20 Anion Gap 7.0 (6-13) 04/26/18 05:20 BUN 15 mg/dL (6-20) 04/26/18 05:20 Creatinine 0.6 mg/dL (0.4-1.0) 04/26/18 05:20 Estimated GFR (MDRD) 102 (>89) 04/26/18 05:20 Glucose 104 mg/dL (70-100) H 04/26/18 05:20 Lactic Acid 0.8 mmol/L (0.5-2.2) 04/24/18 03:55 Calcium 8.7 mg/dL (8.5-10.3) 04/26/18 05:20 Total Bilirubin 0.5 mg/dL (0.2-1.0) 04/26/18 05:20 AST 20 IU/L (10-42) 04/26/18 05:20 ALT 25 IU/L (10-60) 04/26/18 05:20 Alkaline Phosphatase 84 IU/L (42-121) 04/26/18 05:20 Total Protein 6.2 g/dL (6.7-8.2) L 04/26/18 05:20 Albumin 3.3 g/dL (3.2-5.5) 04/26/18 05:20 Globulin 2.9 g/dL (2.1-4.2) 04/26/18 05:20 Albumin/Globulin Ratio 1.1 (1.0-2.2) 04/26/18 05:20 ABX Reporting Has patient been on IV antibiotics over the past 48 hours?: Yes
[2018-04-26] MEDS ORDERED: LOPERAMIDE 2 MG CAPSULE PO PRN (16:31)
[2018-04-26] MEDS: ATORVASTATIN 40 MG TABLET PO SCH (21:20)
[2018-04-26] MEDS: SULFAMETH/TRIMETH DS 800/160 MG TABLET PO SCH (22:01)
[2018-04-27 05:17] LABS: BASOPHILS % (AUTO) 0.3 %; EOSINOPHILS # (AUTO) 0.3 10^3/uL (0.0-0.7); EOSINOPHILS % (AUTO) 4.9 %; HGB - HEMOGLOBIN 12.7 g/dL (12.0-16.0); LYMPHOCYTES # (AUTO) 1.3 10^3/uL (1.5-3.5); LYMPHOCYTES % (AUTO) 24.3 %; MEAN CORPUSCULAR HEMOGLOBIN 29.3 pg (27.0-31.0); MEAN CORPUSCULAR HGB CONC 34.4 g/dL (32.0-36.0); MEAN CORPUSCULAR VOLUME 85.1 fL (81.0-99.0); MEAN PLATELET VOLUME 9.1 fL (7.9-10.8); MONOCYTES # (AUTO) 0.4 10^3/uL (0.0-1.0); MONOCYTES % (AUTO) 7.5 %; NEUTROPHILS # (AUTO) 3.4 10^3/uL (1.5-6.6); PLT - PLATELET COUNT 200 10^3/uL (130-450); RED BLOOD COUNT 4.33 10^6/uL (4.20-5.40); RED CELL DISTRIBUTION WIDTH 13.5 % (12.0-15.0); WHITE BLOOD COUNT 5.3 x10^3/uL (4.8-10.8)
[2018-04-27 05:30] LABS: ALBUMIN 3.6 g/dL (3.2-5.5); ALBUMIN/GLOBULIN RATIO 1.2 (1.0-2.2); BILIRUBIN,TOTAL 0.8 mg/dL (0.2-1.0); CALCIUM 9.1 mg/dL (8.5-10.3); CREATININE 0.6 mg/dL (0.4-1.0); TOTAL PROTEIN 6.5 g/dL (6.7-8.2)
[2018-04-27 08:18] VITALS: BP 130/82
[2018-04-27] MEDS: METOPROLOL TARTRATE 50 MG TABLET PO SCH (08:31)
[2018-04-27] MEDS: SACCHAROMYCES BOULARDII 250 MG CAPSULE PO SCH (08:31)
[2018-04-27] MEDS: FAMOTIDINE 20 MG TABLET PO SCH (08:32)
[2018-04-27] MEDS: MELOXICAM 7.5 MG TABLET PO SCH (08:32)
[2018-04-27] MEDS: SULFAMETH/TRIMETH DS 800/160 MG TABLET PO SCH (08:32)
[2018-04-27] MEDS: POLYETHYLENE GLYCOL 3350 17 GM PACKET PO SCH (08:33)
[2018-04-27] MEDS: ENOXAPARIN 40 MG/0.4 ML SYRINGE SUBQ SCH (08:33)
[2018-04-27] MEDS: SODIUM CHLORIDE FLUSH 0.9% 10 ML SYRINGE IVP SCH (08:35)
--- NOTE | 2018-04-27 13:36 | CT Report ---
Reason: R flank pain, UTI, Hx of kidney stone Procedure Date: 04/27/2018 Accession Number: [id number] / [id number] Procedure: CT - Abdomen/Pelvis W/O CPT Code: FULL RESULT: EXAM: CT ABDOMEN AND PELVIS EXAM DATE: 04/27/2018 12:32 PM. CLINICAL HISTORY: R flank pain, UTI, Hx of kidney stone. COMPARISONS: None. TECHNIQUE: Routine helical CT imaging was performed through the abdomen and pelvis. IV contrast: None. Enteric contrast: No. Reconstructions: Coronal and sagittal. In accordance with CT protocol optimization, one or more of the following dose reduction techniques were utilized for this exam: automated exposure control, adjustment of mA and/or KV based on patient size, or use of iterative reconstructive technique. FINDINGS: Lung Bases: There are multiple areas of linear opacity in the lung bases, compatible with atelectasis or scar. Trace right pleural effusion is present. Liver: Subcentimeter hypoattenuating foci are present in segments 7 and 4A, too small to characterize. Otherwise unremarkable. Gallbladder/Bile Ducts: Small intraluminal calcifications present in the gallbladder, suggestive of stones. No gallbladder wall thickening. Bile ducts are normal in caliber. Spleen: Within normal limits. Pancreas: Unremarkable. Adrenal Glands: No nodules. Kidneys: There is fairly diffuse, faintly increased attenuation in the medullary portions of both kidneys. There is a calculus in the infundibulum of the right upper pole, measuring 15 mm (series 3, image 40), which appears to result in focal calyceal dilation in the upper pole (series 3, image 39). On the left, there is a 5 mm calculus at the ureteropelvic junction (series 3, image 40), which does not result in significant hydronephrosis. Numerous additional punctate nonobstructing calculi present bilaterally. There is a cyst in the lower pole of the right kidney. Peritoneal Cavity/Bowel: There is no evidence of bowel obstruction or inflammation. Mild diverticulosis of the sigmoid colon without evidence for acute diverticulitis. Pelvic Organs: Urinary bladder is decompressed. No bladder calculi demonstrated. Uterus and adnexal structures are unremarkable. No pelvic adenopathy or free fluid. Vasculature: No abdominal aortic aneurysm. Bones: There is an old fracture of the right anterior sixth rib. No suspicious osseous lesion. Other: No retroperitoneal adenopathy. IMPRESSION: 1. Subtle, increased density of the medullary portions of bilateral kidneys, raising the possibility of medullary nephrocalcinosis. 2. A 15 mm calculus in the infundibulum of the right upper pole calyces results in focal upper pole calyceal dilation, suggestive of obstruction at the level of the infundibulum. No global hydronephrosis demonstrated. 3. A 5 mm calculus at the left ureteropelvic junction (UPJ) does not result in significant hydronephrosis. 4. Numerous additional punctate nonobstructing renal calculi present bilaterally. 5. Cholelithiasis. RADIA
--- NOTE | 2018-04-27 14:57 | Discharge Plan ---
Discharge Plan Disposition: Home, Self Care Condition: Stable Prescriptions: Loperamide [Imodium] 2 mg PO QID PRN #10 capsule PRN Reason: Diarrhea Saccharomyces Boulardii [Florastor] 250 mg PO BID 10 Days #20 capsule Sulfamethox/Trimeth 800/160 [Bactrim Ds] 1 tab PO BID 10 Days #20 tablet Diet: Regular Activity Restrictions: Activity as Tolerated Shower Restrictions: No Driving Restrictions: No Instruction Topics: Sulfamethoxazole Trimethoprim SMX-TMP tablets, Urinary Tract Infecs Women, Sepsis Dc, Pneumonia Dc, ED Kidney Infec Female Additional Instructions or Follow Up instructions: You were admitted with a urinary tract infection that had spread into your blood stream. You are being sent home with antibiotics to finish 10 days more of treatment. There is also a medication to take as needed for diarrhea and pill for bowel health. The CT scan did show multiple kidney stones, the largest on the right, which may explain the R-back pain. You should see a Urologist for this. You may need to stop the water pill, which could be adding to stone formation; check with your PCP. Resume all your other pre-hospital medications. Please see your PCP in 5-7 days in follow-up. If you have knew or worsening symptoms, return to the ER. No Smoking: If you smoke, Please STOP! Call for help. Follow-up with: Catina Goncalves PA [Primary Care Provider] -
--- NOTE | 2018-05-01 00:04 | DISCHARGE SUMMARY ---
Physician: Ary Mejias MD DATE OF ADMISSION: 04/24/2018 DATE OF DISCHARGE: 04/27/2018 HISTORY OF PRESENT ILLNESS: This is a 58-year-old white female with a history of hypertension, hyperlipidemia, sleep apnea; on CPAP, kidney stones, who presented to the emergency room the day before this admission with complaints of nausea, vomiting, chills and fever. She was felt to have a urinary tract infection and was discharged to start antibiotics. Her blood cultures turned positive and she was called to return and be admitted to the hospital for treatment with iv antibiotics. HOSPITAL COURSE AND DISCHARGE DIAGNOSES 1. Bacteremia due to Klebsiella pneumoniae. The blood culture grew Klebsiella as well as her urine culture. Her empirically chosen IV antibiotics were adjusted based on the sensitivities. Because of bacteremia, she was discharged to complete a 14-day total course of treatment using oral Bactrim DS for 10 more days. 2. Acute pyelonephritis. The patient's urine grew the same species. She had dysuria early in the course, which improved with antibiotics. She received IV hydration briefly. 3. Hypertension. The patient was kept on her blood pressure medications while here. 4. Obstructive sleep apnea, on CPAP. The patient was kept on her home CPAP unit while here. 5. Community-acquired pneumonia. Because of the patient's admitting complaints suggesting infection, she had a chest x-ray on presentation, which was read as having mild bibasilar reticular nodular opacities, which were felt to be consistent with an atypical pneumonia. The Bactrim DS treatment should cover atypical organisms. She never produced a sputum culture. 6. Diarrhea due to drug. On her final day here, she developed loose stools. She was started on symptomatic treatment and advised to stay well hydrated. 7. Kidney stones. On her final day of hospitalization, she also complained of right-sided flank pain. She underwent a CT of the abdomen and pelvis that showed multiple bilateral kidney stones, the largest was in the right upper kidney resulting in focal upper pole calyceal dilation suggestive of obstruction at the level of the infundibulum. There was no global hydronephrosis. The patient has had previous Urology evaluation and knows that she is due for Urology followup. She was given a copy of this CT report to take to her Urologist. ALLERGIES: ADHESIVE TAPE AND CEFTRIAXONE. MEDICATIONS AT TIME OF DISCHARGE 1. ProAir inhaler p.r.n. 2. Lipitor 20 mg q.p.m. 3. HCTZ 12.5 mg daily (She was advised to check if this should be continued because of the recurrent kidney stones). 4. Mobic 15 mg daily. 5. Toprol-XL 100 daily and 50 mg q.p.m. 6. Zoloft 50 mg daily. 7. Imodium p.r.n. 8. Florastor 250 mg b.i.d. for 10 days. 9. Trimethoprim sulfa 800/160 p.o. b.i.d. for 10 more days. LABORATORY AND IMAGING: Reviewed and summarized above. CONDITION AT DISCHARGE: Fair. PHYSICAL EXAMINATION VITAL SIGNS: Blood pressure 130/82, heart rate 71, sinus rhythm, afebrile, room air saturation 93%. HEENT: Unremarkable. NECK: Without JVD or carotid bruits. CHEST: Clear. HEART: Heart sounds are normal with no murmur. ABDOMEN: Soft, nontender, benign. The right flank and left flank have no tenderness. EXTREMITIES: Without edema. NEUROLOGIC: Intact. FOLLOWUP: She was advised to see her PCP in 5-7 days and to have a urology appointment. CODE STATUS: FULL CODE. Time required to complete this entire discharge, chart review, patient education, prescription orders, dictation: 60 minutes. cc: ALICIA Bennett TD: 04/30/2018 22:33 MTDD
== END 2018-04-27 16:06 | disposition home or self-care (01) | DRG 871 ==
LOC: ED 00:11 → ICU 00:41 → MS3 19:08
PROVIDERS: ADMIT Internal Medicine; ATTEND Internal Medicine
DX: R78.81 Bacteremia (principal); J18.1 Lobar pneumonia, unspecified organism; N10 Acute pyelonephritis; N30.00 Acute cystitis without hematuria; K52.1 Toxic gastroenteritis and colitis; T36.95XA Adverse effect of unspecified systemic antibiotic, initial encounter; Y92.230 Patient room in hospital as the place of occurrence of the external cause; I10 Essential (primary) hypertension; E78.5 Hyperlipidemia, unspecified; B96.1 Klebsiella pneumoniae [K. pneumoniae] as the cause of diseases classified elsewhere; N20.0 Calculus of kidney; G89.29 Other chronic pain; M54.9 Dorsalgia, unspecified; G47.33 Obstructive sleep apnea (adult) (pediatric); E86.0 Dehydration; E87.6 Hypokalemia; Z79.899 Other long term (current) drug therapy; Z79.1 Long term (current) use of non-steroidal anti-inflammatories (NSAID)
CPT/HCPCS: 36415; 71045; 71046; 74176; 80053; 81001; 81003; 83605; 83690; 85025; 87040; 87077; 87086; 87150; 87181; 96365; 99283; 99284

== ENCOUNTER 2021-07-10 09:21 | Outpatient (CLI) | payer OTHER ==
[2021-07-10 10:12] VITALS: BP 134/80
--- NOTE | 2021-07-10 10:12 | SLEEP CARE CONSULTATION ---
Information from patient questionnaire entered by Crow Davidson MA. I have reviewed and concur with the information entered by Crow Davidson MA. This document represents the service I personally performed and the decisions made by me, Gertrude Zavala MD, [facility]. History of Present Illness Service Date and Time: 07/10/2021 0921 Reason for Visit: New patient (INITIAL, LAST SEEN 2014, CPAP BROKE,), Previously diagnosed sleep apnea Additional HPI information: I have the pleasure of seeing Ms. Reddy today regarding obstructive sleep apnea. As you know, she is a 60 year old lady who had a sleep study here 7 years ago that showed mild obstructive sleep apnea-hypopnea (AHI was 5.3 and jakob oxygen saturation, 85%). She was prescribed a CPAP set at 7 cmH2O. She used the ResMed AirSense intermittently until 3 weeks ago when it broke. She brought the ResMed AirSense 10 in and it appears that on/off button is stuck in on position. She wears the ResMed AirFit P-10 nasal pillows. Her durable medical supplier is [employer]. The compliance data show usage in 83 out of the past 180 nights, averaging 5.1 hours a night. The > 4 hour compliance rate for the past 30 days is 24%. The residual AHI is 0.7 and average air leak is 0.9 L/minute. She says that she feels a lot better using the CPAP. However, she still snores through the CPAP. Subjective Current [place] Sleepiness Scale score: 7 Past Medical History Past Medical History: reports: Hypertension, Anxiety, Depression, Other (kidney stones) Social History The patient's occupation is a RE. Patient is and lives in . Have you smoked in the past 12 months: No Alcohol use: No Caffeine use: Yes Caffeine amount and frequency: 2-3 cups a day Family History Family Hx Sleep Apnea: Father: Snoring Allergies and Home Medications Drug allergies reviewed: Yes Home medication list reviewed: Yes Review of Systems Cardiovascular: reports: high blood pressure Respiratory: denies: shortness of breath, wheeze, sputum production, chronic cough, other Gastrointestinal: denies: heartburn, difficulty swallowing, nausea, vomitting, diarrhea, abdominal pain, other Urinary: reports: other (kidney stones) Neurological: denies: headaches, seizure, head trauma, disorientation, speech dysfunction, gait or balance problems, fainting or unconsciousness, other Psychiatric: reports: anxiety, depression Ear/Nose/Throat: denies: nasal congestion, sinus problems, nose bleeds, dry mouth/throat, hoarseness, injury to nose, tonsillectomy, wisdom teeth removed, other Endocrine: denies: thyroid disease, history of goiter, sluggishness, too hot or cold, excessive thirst, increased appetite, increased urination, unexplained weakness, other Musculoskeletal: denies: joint pain, neck pain, back pain, joint swelling, muscle pain or cramping, mobility problems, other Immunologic: denies: sneezing, rash, itching, allergies to food or environment, other Physical Exam Vital signs obtained and entered by: MINDA KENYON Blood Pressure: 134/80 Cuff size: regular Heart Rate: 71 O2 Saturation: 93 Height: 5 ft 5 in Weight: 210 lb Body Mass Index: 34.9 BMI Classification: Obese Mood/affect: normal Impression and Plan IMPRESSION: 1. Obstructive Sleep Apnea-Hypopnea Syndrome, mild, previously diagnosed. The patient has poor compliance despite reporting clear improvement. The pressure is slightly ineffective because she still snores through the CPAP. Because the CPAP is broken and now older than the useful life of 5 years, I will order the patient a new one and make it an autoCPAP set between 7 and 12 cmH2O. Plan: 1. Her CPAP set to 9 cmH2O manually. 2. Prescription made for an autoCPAP, heated humidifier, and related supplies. 3. Avoid alcohol, sedative and muscle relaxant around bedtime. 4. Attempt to lose weight. 5. Return for follow up after one month of using the CPAP. Counseling Topics: Weight loss health impact Prescriptions: Auto CPAP Follow up with Sleep Care in: 1-2 months Visit Type: In Office Time Spent with Patient (minutes): 15 Provider Statement: I spent 100% of the Face to Face Visit with the patient with greater than 50% spent counseling the patient and coordination of care.
== END 2021-07-10 09:22 | disposition home or self-care (01) ==
LOC: SC 09:21
PROVIDERS: ATTEND Internal Medicine Pulmonary Disease
DX: G47.33 Obstructive sleep apnea (adult) (pediatric) (principal); E66.9 Obesity, unspecified; Z68.34 Body mass index [BMI] 34.0-34.9, adult
CPT/HCPCS: 99202; 99212

== ENCOUNTER 2021-09-01 09:00 | Emergency (ER) | payer OTHER ==
[2021-09-01] MEDS ORDERED: LORATADINE 10 MG TABLET PO STA (09:16)
[2021-09-01] MEDS ORDERED: EPINEPHrine 1 MG/ML AMP IM STA (09:16)
[2021-09-01] MEDS ORDERED: predniSONE 20 MG TABLET PO STA (09:16)
--- NOTE | 2021-09-01 09:19 | ED Physician Documentation ---
History of Present Illness - Stated complaint Stated Complaint: BODY RASH - Chief complaint Chief Complaint: Allergic Rx - History obtained from History obtained from: Patient - Additonal information Additional information: 61-year-old woman developed mouth sores and hives as well as severe diffuse itching with some stomach upset and nausea and today developed conjunctivitis. This was soft starting about 48 h ago after eating a hamburger at a fast food place. No history of severe allergies but she is allergic to tape. Review of Systems Constitutional: reports: Reviewed and negative Ears: reports: Reviewed and negative Nose: reports: Reviewed and negative Throat: reports: Reviewed and negative Cardiac: reports: Reviewed and negative Respiratory: reports: Reviewed and negative PD PAST MEDICAL HISTORY - Past Medical History Cardiovascular: Hypertension, High cholesterol, Other Respiratory: Pneumonia, CPAP use Neuro: None Endocrine/Autoimmune: None GI: GERD, Other : Chronic bladder infection, Kidney stones Psych: Depression, Anxiety Musculoskeletal: Chronic back pain Derm: None - Past Surgical History Past Surgical History: Yes General: Appendectomy /DIRECTOR MBA: section, Tubal ligation - Present Medications Home Medications: Ambulatory Orders Medication Instructions Recorded Confirmed Albuterol Sulfate [Proair Hfa 2 puffs INH Q6H PRN 04/24/18 04/24/18 Inhaler] Atorvastatin Calcium 20 mg PO QPM 04/24/18 04/24/18 Meloxicam [Mobic] 15 mg PO DAILY 04/24/18 04/24/18 Metoprolol Succinate [Toprol Xl] 50 mg PO QPM 04/24/18 04/24/18 Metoprolol Succinate [Toprol Xl] 100 mg PO DAILY 04/24/18 04/24/18 Sertraline [Zoloft] 50 mg PO DAILY 04/24/18 04/24/18 hydroCHLOROthiazide [Hydrodiuril] 12.5 mg PO DAILY 04/24/18 04/24/18 Loperamide [Imodium] 2 mg PO QID PRN #10 capsule 04/27/18 Saccharomyces Boulardii [Florastor] 250 mg PO BID 10 Days #20 capsule 04/27/18 Sulfamethox/Trimeth 800/160 1 tab PO BID 10 Days #20 tablet 04/27/18 [Bactrim Ds] Doxepin [SINEquan] 10 mg PO TID PRN #20 cap 09/01/21 Loratadine [Claritin] 10 mg PO DAILY #30 cap 09/01/21 predniSONE [Deltasone] 60 mg PO DAILY 5 Days #15 tablet 09/01/21 - Allergies Allergies/Adverse Reactions: Allergies Allergy/AdvReac Type Severity Reaction Status Date / Time adhesive Allergy Hives Verified 09/01/21 09:08 ceftriaxone AdvReac Nausea Verified 09/01/21 09:08 - Social History Does the pt smoke?: No Smoking Status: Never smoker Does the pt drink ETOH?: No Does the pt have substance abuse?: No - Immunizations Immunizations are current?: Yes - POLST Patient has POLST: No POLST Status: Full Code PD ED PE NORMAL - Vitals Vital signs reviewed: Yes - General General: Alert and oriented X 3, No acute distress - HEENT HEENT: Other (Mild allergic conjunctivitis, no oral lesions or angioedema at th is juncture.) - Neck Neck: Supple, no meningeal sign, No bony TTP - Cardiac Cardiac: RRR, No murmur - Respiratory Respiratory: No respiratory distress, Clear bilaterally - Abdomen Abdomen: Non tender - Derm Derm: Other (Diffuse body wide hives) - Neuro Neuro: Alert and oriented X 3, Normal speech Results - Vitals Vitals: Vital Signs - 24 hr 09/01/21 09:04 Temperature 36.5 C Heart Rate 113 H Respiratory 18 Rate Blood Pressure 153/85 H O2 Saturation 97 Oxygen O2 Source Room air PD MEDICAL DECISION MAKING - ED course ED course: 61-year-old woman presents with mild anaphylaxis that is 48 h old. She is administered epinephrine, steroids and Claritin here. No antihistamines othe rwise as she is driving. Departure - Departure Disposition: 01 Home, Self Care Clinical Impression: Anaphylactic reaction Qualifiers: Encounter type: initial encounter Qualified Code(s): T78.2XXA - Anaphylactic shock, unspecified, initial encounter Condition: Good Record reviewed to determine appropriate education?: Yes Instructions: ED Allergic Reaction General Other Prescriptions: Loratadine [Claritin] 10 mg PO DAILY #30 cap predniSONE [Deltasone] 60 mg PO DAILY 5 Days #15 tablet Doxepin [SINEquan] 10 mg PO TID PRN #20 cap PRN Reason: Itching Comments: I sent your prescriptions electronically to [facility] in [place]. Return for new or worsening symptoms. Do not drink or drive while taking prescription antiitch medication, doxepin. If this becomes a recurrent issue follow-up with an round kiln drawer for consideration for allergy testing. Follow-up with your primary care physician regardless.
[2021-09-01 09:48] VITALS: BP 138/83
== END 2021-09-01 09:51 | disposition home or self-care (01) ==
LOC: ED 09:00
DX: T78.2XXA Anaphylactic shock, unspecified, initial encounter (principal); I10 Essential (primary) hypertension
CPT/HCPCS: 96372; 99282; 99283; A9270; J7512

== ENCOUNTER 2021-11-23 13:21 | Outpatient (CLI) | payer OTHER | END 2021-11-23 13:22 | disposition short-term general hospital (02) | LOC: EMS 13:21 | DX: R07.81 Pleurodynia (principal); R07.1 Chest pain on breathing; M25.512 Pain in left shoulder; V80.010A Animal-rider injured by fall from or being thrown from horse in noncollision accident, initial encounter; Y93.52 Activity, horseback riding; Y92.838 Other recreation area as the place of occurrence of the external cause | CPT/HCPCS: A0425; A0427 ==

== ENCOUNTER 2024-03-16 08:52 | Outpatient (CLI) | payer MEDICARE, OTHER ==
--- NOTE | 2024-03-16 09:53 | SLEEP CARE CONSULTATION ---
Information from patient questionnaire entered by Addy Olmos. I have reviewed and concur with the information entered by Addy Olmos. This document represents the service I personally performed and the decisions made by me, Gertrude Zavala MD, [facility]. History of Present Illness Service Date and Time: 03/16/2024 0852 Reason for follow up: annual (LAST SEEN 07/29/23) Equipment type: CPAP HPI additional information: Ms. Reddy returned today for follow up of nasal CPAP therapy. She was diagnosed with mild obstructive sleep apnea-hypopnea syndrome. The patient went to [facility] for the equipment and was fitted with nasal pillows. She reports using the ResMed AirSense 11 nightly and all through the night. She is renting this machine out of pocket because her original machine broke 2 years ago. The compliance report shows usage in 291 nights out of the past 365 nights, averaging 7.1 hours a night. The > 4 hour compliance rate for the past 30 days is 72%. She complained of no particular problem with the device such as soreness on the face, dry nose, epistaxis, nasal congestion or headache. She thinks that the pressure of 7 - 12 cmH2O is comfortable. On the CPAP therapy she notices improvement in her sleep quality, and that she wakes up feeling fresher in the morning and more awake/alert during the day. The [place] Sleepiness Scale score 5 Her notices no snore at all. The average residual AHI is 0.4; and air leak, 4.2 L/min. The 90th percentile pressure is 11.4 cmH2O. CPAP Compliance Data - Data Reviewed with Patient Average duration of nightly device use: 7HRS 5MINS Compliance rate %: 72 (03/14/23-03/12/24) Current pressure setting (cmH2O): 7-12 Average residual AHI: 0.4 Subjective Current [place] Sleepiness Scale score: 5 (03/16/24) Allergies and Home Medications Drug allergies reviewed: Yes Home medication list reviewed: Yes Allergy and home medication list: Allergies adhesive Allergy (Verified 03/16/24 09:26) Hives ceftriaxone Adverse Reaction (Verified 03/16/24 09:26) Nausea Review of Systems Review of systems same as previous: Yes (NO CHANGE) Physical Exam Vital signs obtained and entered by: ADDY Solis MA Blood Pressure: 137/80 (RIGHT ARM) Cuff size: regular Heart Rate: 62 O2 Saturation: 97 Height: 5 ft 5.5 in Weight: 227 lb 12.8 oz Body Mass Index: 37.3 BMI Classification: Obese Impression and Plan IMPRESSION: 1. Obstructive Sleep Apnea-Hypopnea Syndrome, mild (AHI = 5.3) with the patient doing well on nasal CPAP therapy. She has excellent compliance and significant clinical improvement. The current pressure appears effective and comfortable. Overall, she is very satisfied with treatment, and plans to continue with it long-term. Because her original CPAP is now older than the useful life of 5 years, I will order the patient a new one and make it an autoCPAP set between 5 and 10 cmH2O (slightly lower pressure to help minimize air leak). PLAN: 1. Continue with nasal CPAP therapy with 7 - 12 cmH2O. 2. Prescription made for an autoCPAP, heated humidifier, and related supplies. 3. Try other masks and nasal pillows. 4. Return for follow up after one month of using the CPAP. Counseling Topics: Weight control Prescriptions: Auto CPAP Follow up with Sleep Care in: 1-2 months Visit Type: In Office Time Spent with Patient (minutes): 15 Provider Statement: I spent 100% of the Face to Face Visit with the patient with greater than 50% spent counseling the patient and coordination of care.
[2024-03-16 10:03] VITALS: BP 137/80; O2SAT 97
== END 2024-03-16 08:53 | disposition home or self-care (01) ==
LOC: SC 08:52
PROVIDERS: ATTEND Internal Medicine Pulmonary Disease
DX: G47.33 Obstructive sleep apnea (adult) (pediatric) (principal); E66.9 Obesity, unspecified; Z68.37 Body mass index [BMI] 37.0-37.9, adult
CPT/HCPCS: 99212; G0463